=== PATIENT | female | born 1940 | race Caucasian/White ===

== ENCOUNTER → 2017-06-14 | Outpatient (CLI) | payer OTHER, BC ==
[~2017-06-14] VITALS: Ht 161.3 cm; Wt 72.6 kg
[~2017-06-14] MED LIST: ALLEGRA180 MG PO; ASPIRIN81 M2 PO; CENTRUM SILV1 TABLE1 PO; CHILDREN'S100 MG/5 M PO; CYMBALTA30 MG PO; FLONASE16 G1 BOTH NARES; LOPRESSOR50 MG PO; Lopressor PO; MIRALAX, GLYCOL1 PK1 PO; PATADAY2.5 ML BOTH EYES; PRAVACHOL20 MG PO; VENTOLIN HFA18 GM IH
== END | disposition home or self-care (01) ==
LOC: AMB 10:09
DX: Z12.11 Encounter for screening for malignant neoplasm of colon (principal); K66.0 Peritoneal adhesions (postprocedural) (postinfection); I10 Essential (primary) hypertension; J45.909 Unspecified asthma, uncomplicated; Z79.82 Long term (current) use of aspirin; Z53.09 Procedure and treatment not carried out because of other contraindication
CPT/HCPCS: 93005; J2250; J3010